=== PATIENT | female | born 1945 ===

== ENCOUNTER 2017-04-10 08:48 | Day surgery (SDC) | payer MEDICARE, OTHER ==
[~2017-04-10] VITALS: Ht 154.9 cm; Wt 71.3 kg
[~2017-04-10 08:48] MED LIST: ACET500 PO; ASCO500 PO; Adult Low Dose81 MG PO; Ativan0.5 MG PO; Biotin1 MG PO; Boniva150 MG; CALCIT950 PO; CLON.1 PO; CYCL10 PO; ENOX80I SC; FENO145 PO; FLUO60T; GLUCOSAMINE PO; GLUCOSAMINE/CHONDRO PO; HYDCHL25 PO; HYDSUL200 PO; LETR2.5 PO; LEVSOD88 PO; LISI20 PO; MAG-TAB SR PO; METO50 PO; MSM1000 MG PO; MULVITMIND PO; Meribin5 MG PO; OMEP20ER PO; Olux-E 0.05% F100 GM TP; PSYL5.85P PO; SUMA25 PO; Salmon Oil 1,01 EACH PO; TRAV.004OP BOTHEYES; UBID100 PO; VENL150ER PO; VOLTARIN GEL; WARF1 PO; ZOLP10 PO; Zanaflex4 M1 PO; [UNRECOGNIZED DRUG - OTHER] PO
[2017-04-10] MEDS ORDERED: GLUC500 (09:09)
[2017-04-10] MEDS ORDERED: Coq-10100 MG (09:09)
== END 2017-04-10 11:25 | disposition home or self-care (01) ==
LOC: ORSCSDS 08:48
PROVIDERS: Internal Medicine Gastroenterology
PROC: 0DBL8ZX Excision of Transverse Colon, Via Natural or Artificial Opening Endoscopic, Diagnostic (ICD-10-PCS; principal; 2017-04-10 10:00)
PROC: 0DB68ZX Excision of Stomach, Via Natural or Artificial Opening Endoscopic, Diagnostic (ICD-10-PCS; principal; 2017-04-10 10:00)
DX: K21.9 Gastro-esophageal reflux disease without esophagitis (principal); K31.7 Polyp of stomach and duodenum; K63.5 Polyp of colon; K64.8 Other hemorrhoids; K57.30 Diverticulosis of large intestine without perforation or abscess without bleeding; Z12.11 Encounter for screening for malignant neoplasm of colon; Z86.010 Personal history of colon polyps; Z80.0 Family history of malignant neoplasm of digestive organs; M32.9 Systemic lupus erythematosus, unspecified; M79.7 Fibromyalgia; E78.5 Hyperlipidemia, unspecified; E03.9 Hypothyroidism, unspecified; Z86.711 Personal history of pulmonary embolism; Z86.718 Personal history of other venous thrombosis and embolism; Z79.899 Other long term (current) drug therapy
CPT/HCPCS: 82947; 88305; 88342; J2405; J7120

== ENCOUNTER 2017-09-23 16:38 | Emergency (ER) | payer MEDICARE, OTHER ==
[~2017-09-23] VITALS: Ht 154.9 cm; Wt 74.8 kg
[~2017-09-23 16:38] MED LIST changes: +Coq-10100 MG; +GLUC500
[2017-09-23 18:47] LABS: BASOPHILS ABSOLUTE AUTO 0.03 K/mm3 (0.00-0.23); BASOPHILS PERCENT AUTO 0 % (0-2); EOSINOPHILS ABSOLUTE AUTO 0.16 K/mm3 (0.00-0.68); EOSINOPHILS PERCENT AUTO 2 % (0-6); Hematocrit 33.6 % (33.0-51.0); Hemoglobin 11.1 g/dL (11.5-16.0); IMMATURE GRAN ABSOLUTE AUTO 0.01 K/mm3 (0.00-0.10); IMMATURE GRAN PERCENT AUTO 0 % (0-1); LYMPHOCYTES ABSOLUTE AUTO 1.78 K/mm3 (0.84-5.20); LYMPHOCYTES PERCENT AUTO 26 % (21-46); MONOCYTES ABSOLUTE AUTO 0.63 K/mm3 (0.16-1.47); MONOCYTES PERCENT AUTO 9 % (4-13); Mean Corpuscular HGB 30.4 pg (26.0-34.0); Mean Corpuscular Volume 92 fL (80-100); Mean Platelet Volume 10.9 fL (9.1-12.4); NEUTROPHILS ABSOLUTE AUTO 4.38 K/mm3 (1.96-9.15); NEUTROPHILS PERCENT AUTO 63 % (41-73); Platelet Count 248 K/mm3 (150-400); RDW Coefficient Variation 12.6 % (11.7-14.2); RDW Standard Deviation 42.9 fL (35.1-46.3); Red Blood Cell Count 3.65 M/mm3 (3.80-5.20); White Blood Cell Count 6.99 K/mm3 (4.00-11.30)
[2017-09-23 18:58] LABS: Albumin, Blood 4.1 g/dL (3.4-5.0); Albumin/Globulin Ratio 1.2 (0.8-1.8); Bilirubin, Total 0.3 mg/dL (0.1-1.0); Calcium, Blood 10.6 mg/dL (8.5-10.1); Creatinine, Blood 1.18 mg/dL (0.40-1.00); Globulin, Blood 3.4 g/dL (2.2-4.0); Potassium, Blood 3.9 mmol/L (3.5-5.5); Total Protein, Blood 7.5 g/dL (6.4-8.2)
[2017-09-23] MEDS ORDERED: Cleocin HCl300 MG PO (21:19)
== END 2017-09-23 21:29 | disposition home or self-care (01) ==
LOC: ER 16:38
PROVIDERS: Emergency Medicine
DX: K11.20 Sialoadenitis, unspecified (principal); Z88.0 Allergy status to penicillin; Z88.1 Allergy status to other antibiotic agents; Z88.8 Allergy status to other drugs, medicaments and biological substances; Z91.048 Other nonmedicinal substance allergy status; Z79.899 Other long term (current) drug therapy; Z79.82 Long term (current) use of aspirin; Z86.718 Personal history of other venous thrombosis and embolism; Z86.711 Personal history of pulmonary embolism
CPT/HCPCS: 36415; 70491; 80053; 85025; 99283-25; Q9967

== ENCOUNTER → 2018-04-09 | Outpatient (CLI) | payer MEDICARE, OTHER ==
[~2018-04-09] MED LIST changes: +Cleocin HCl300 MG PO
== END ==
LOC: PLD 09:49 → LAB SHORT 09:49
DX: D48.5 Neoplasm of uncertain behavior of skin (principal)
CPT/HCPCS: 88305

== ENCOUNTER 2019-01-27 12:56 | Emergency (ER) | payer MEDICARE, OTHER ==
[~2019-01-27] VITALS: Ht 154.9 cm; Wt 76.2 kg
[2019-01-27] MEDS ORDERED: Prednisone20 MG PO (14:22)
[2019-01-27] MEDS ORDERED: Norco 10-325 T1 EACH PO (14:22)
[2019-01-27] MEDS ORDERED: Cyclobenzaprine5 MG PO (14:22)
== END 2019-01-27 14:47 | disposition home or self-care (01) ==
LOC: ER 12:56
DX: M54.42 Lumbago with sciatica, left side (principal); G89.29 Other chronic pain; Z88.0 Allergy status to penicillin; Z88.8 Allergy status to other drugs, medicaments and biological substances; Z91.048 Other nonmedicinal substance allergy status; Z88.1 Allergy status to other antibiotic agents; Z79.899 Other long term (current) drug therapy; Z79.82 Long term (current) use of aspirin
CPT/HCPCS: 96372; 99283-25; J1100; J1170

== ENCOUNTER 2019-01-29 08:43 | Emergency (ER) | payer MEDICARE, OTHER ==
[~2019-01-29] VITALS: Ht 154.9 cm; Wt 72.6 kg
[~2019-01-29 08:43] MED LIST changes: +Cyclobenzaprine5 MG PO; +Norco 10-325 T1 EACH PO; +Prednisone20 MG PO
[2019-01-29 10:43] LABS: BASOPHILS ABSOLUTE AUTO 0.01 K/mm3 (0.00-0.23); BASOPHILS PERCENT AUTO 0 % (0-2); EOSINOPHILS PERCENT AUTO 0 % (0-6); Hematocrit 34.7 % (33.0-51.0); Hemoglobin 11.5 g/dL (11.5-16.0); IMMATURE GRAN ABSOLUTE AUTO 0.11 K/mm3 (0.00-0.10); IMMATURE GRAN PERCENT AUTO 1 % (0-1); LYMPHOCYTES ABSOLUTE AUTO 0.71 K/mm3 (0.84-5.20); LYMPHOCYTES PERCENT AUTO 6 % (21-46); MONOCYTES ABSOLUTE AUTO 0.68 K/mm3 (0.16-1.47); MONOCYTES PERCENT AUTO 6 % (4-13); Mean Corpuscular HGB 30.6 pg (26.0-34.0); Mean Corpuscular HGB Conc 33.1 g/dL (31.5-36.5); Mean Corpuscular Volume 92 fL (80-100); Mean Platelet Volume 10.9 fL (9.1-12.4); NEUTROPHILS PERCENT AUTO 88 % (41-73); Platelet Count 217 K/mm3 (150-400); RDW Coefficient Variation 12.6 % (11.7-14.2); RDW Standard Deviation 42.5 fL (35.1-46.3); Red Blood Cell Count 3.76 M/mm3 (3.80-5.20); White Blood Cell Count 12.41 K/mm3 (4.00-11.30)
[2019-01-29 11:00] LABS: Anion Gap 7 mmol/L (6-16); Blood Urea Nitrogen 38 mg/dL (8-24); CO2, Blood 27 mmol/L (21-32); Calcium, Blood 9.6 mg/dL (8.5-10.1); Chloride, Blood 103 mmol/L (98-108); Glucose, Blood 202 mg/dL (70-99); Magnesium, Blood 1.7 mg/dL (1.6-2.4); Potassium, Blood 4.2 mmol/L (3.5-5.5); Sodium, Blood 137 mmol/L (136-145)
[2019-01-29 11:01] LABS: Bun/Creatinine Ratio 42.2 (12.0-20.0); Glomerular Filtration Rate >60 (60-)
[2019-01-29 11:06] LABS: Source, Urine Catheter
[2019-01-29 11:09] LABS: Bilirubin, Urine Neg (Neg); Blood, Urine 1+ (Neg); Glucose Qualitative, Urine Neg (Neg); Ketones, Urine Neg (Neg); Leukocyte Esterase, Urine Neg (Neg); Nitrite, Urine Neg (Neg); Protein, Urine 3+ (Neg); Specific Gravity, Urine 1.015 (1.003-1.022); Urobilinogen, Urine NORM (Normal)
[2019-01-29 11:12] LABS: Appearance, Urine Clear (Clear); Color, Urine Yellow (P-Yellow)
[2019-01-29 11:19] LABS: Bacteria Not Seen /hpf; Hyaline Casts 0-2 /lpf (0-2); Red Blood Cells, Urine 0-2 /hpf (0-2); Squamous Epithelial Cells Not Seen /hpf (Few); White Blood Cells, Urine Rare /hpf (0-5)
[2019-01-29] MEDS ORDERED: Valium5 MG PO (11:40)
[2019-01-29] MEDS ORDERED: Percocet 10-321 EACH PO (11:40)
== END 2019-01-29 14:21 | disposition home or self-care (01) ==
LOC: ER 08:43
PROVIDERS: Emergency Medicine
DX: M54.16 Radiculopathy, lumbar region (principal); F41.9 Anxiety disorder, unspecified; M79.7 Fibromyalgia; M62.830 Muscle spasm of back; K21.9 Gastro-esophageal reflux disease without esophagitis; Z85.828 Personal history of other malignant neoplasm of skin; Z86.711 Personal history of pulmonary embolism; Z86.718 Personal history of other venous thrombosis and embolism; Z88.0 Allergy status to penicillin; Z88.1 Allergy status to other antibiotic agents; Z79.899 Other long term (current) drug therapy; Z79.82 Long term (current) use of aspirin; Z79.891 Long term (current) use of opiate analgesic; Z79.52 Long term (current) use of systemic steroids
CPT/HCPCS: 36415; 80048; 81001; 83735; 85025; 96361; 96374; 96375; 99283-25; J2060; J2405; J2930; J3010; J7030

== ENCOUNTER 2019-02-11 18:31 | Inpatient (IN) | payer MEDICARE, OTHER ==
[~2019-02-11] VITALS: Ht 162.6 cm; Wt 68.0 kg
[~2019-02-11 18:31] MED LIST changes: +Percocet 10-321 EACH PO; +Valium5 MG PO
[2019-02-11 20:29] LABS: BASOPHILS ABSOLUTE AUTO 0.02 K/mm3 (0.00-0.23); BASOPHILS PERCENT AUTO 0 % (0-2); EOSINOPHILS ABSOLUTE AUTO 0.05 K/mm3 (0.00-0.68); EOSINOPHILS PERCENT AUTO 0 % (0-6); Hematocrit 35.4 % (33.0-51.0); Hemoglobin 11.7 g/dL (11.5-16.0); IMMATURE GRAN ABSOLUTE AUTO 0.05 K/mm3 (0.00-0.10); IMMATURE GRAN PERCENT AUTO 0 % (0-1); LYMPHOCYTES ABSOLUTE AUTO 0.72 K/mm3 (0.84-5.20); LYMPHOCYTES PERCENT AUTO 6 % (21-46); MONOCYTES ABSOLUTE AUTO 1.07 K/mm3 (0.16-1.47); MONOCYTES PERCENT AUTO 8 % (4-13); Mean Corpuscular HGB 30.7 pg (26.0-34.0); Mean Corpuscular HGB Conc 33.1 g/dL (31.5-36.5); Mean Corpuscular Volume 93 fL (80-100); NEUTROPHILS ABSOLUTE AUTO 10.92 K/mm3 (1.96-9.15); NEUTROPHILS PERCENT AUTO 85 % (41-73); Platelet Count 215 K/mm3 (150-400); RDW Coefficient Variation 12.4 % (11.7-14.2); RDW Standard Deviation 42.5 fL (35.1-46.3); Red Blood Cell Count 3.81 M/mm3 (3.80-5.20); White Blood Cell Count 12.83 K/mm3 (4.00-11.30)
[2019-02-11 20:59] LABS: Body Fluid Crystals NEG (NEGATIVE)
[2019-02-11 21:12] LABS: Appearance, Synovial Fluid Bloody (Clear); Color, Synovial Fluid Red (None-P Yel)
[2019-02-11] MEDS ORDERED: OXYCODONE/ACETAMINOP (21:13)
[2019-02-11 21:30] LABS: Eos, Synovial Fluid 1 % (0-2); Lymphs, Synovial Fluid 4 % (0-15); Monocytes/Macrophages, Synovia 1 % (0-65); Neutrophils, Synovial Fluid 94 % (0-24)
[2019-02-12 00:08] LABS: Alanine Aminotransfer (ALT/SGP 33 U/L (12-78); Albumin, Blood 3.1 g/dL (3.4-5.0); Albumin/Globulin Ratio 0.8 (0.8-1.8); Alk Phos 48 U/L (50-136); Anion Gap 6 mmol/L (6-16); Aspartate Aminotrans (AST/SGOT 20 U/L (12-37); Bilirubin, Total 0.5 mg/dL (0.1-1.0); Blood Urea Nitrogen 14 mg/dL (8-24); CO2, Blood 28 mmol/L (21-32); Calcium, Blood 9.1 mg/dL (8.5-10.1); Chloride, Blood 100 mmol/L (98-108); Creatinine, Blood 0.74 mg/dL (0.40-1.00); Globulin, Blood 3.8 g/dL (2.2-4.0); Glomerular Filtration Rate >60 (60-); Glucose, Blood 177 mg/dL (70-99); Potassium, Blood 3.2 mmol/L (3.5-5.5); Sodium, Blood 134 mmol/L (136-145); Total Protein, Blood 6.9 g/dL (6.4-8.2)
--- NOTE | 2019-02-12 05:26 | NUR ---
SHIFT SUMMARY: MILEY WAS ADMITTED THIS MORNING, MEDICAL FLOOR OVERFLOW. SHE IS A&OX4. SHE HAS COMPLAINED OF 12/10 PAIN IN HER LEFT ANKLE/LEG/BACK FOR WHICH SHE REPORTED DILAUDID, ICING AND ELEVATING IMPROVED HER PAIN TO 7/10. SHE IS ABLE TO MAKE HER NEEDS KNOWN. SHE DECLINED TO CHANGE INTO A HOSPITAL GOWN. THE IV TO HER LEFT AC IS PATENT, BUT SHE DID COMPLAIN OF DISCOMFORT WITH THE POTASSIUM INFUSION. HER IS AT BEDSIDE WHO HAS PROVIDED BACK RUBS AND DISTRACTION TO HELP WITH PAIN. BOTH MILEY AND HER ARE INQUISITIVE AND ARE DETAILED HISTORIANS. SHE IS LYING IN BED WITH EYES CLOSED AND EVEN, UNLABORED RESPIRATIONS. HER CALL LIGHT IS WITHIN REACH.
[2019-02-12] MEDS ORDERED: MAGN84 PO (08:36)
[2019-02-12] MEDS ORDERED: THERA1 EACH PO (08:37)
[2019-02-12] MEDS ORDERED: Salmon Oil 1,01 EACH PO (08:38)
[2019-02-12 10:22] LABS: BASOPHILS ABSOLUTE AUTO 0.02 K/mm3 (0.00-0.23); BASOPHILS PERCENT AUTO 0 % (0-2); EOSINOPHILS ABSOLUTE AUTO 0.17 K/mm3 (0.00-0.68); EOSINOPHILS PERCENT AUTO 2 % (0-6); Hematocrit 34.2 % (33.0-51.0); IMMATURE GRAN ABSOLUTE AUTO 0.03 K/mm3 (0.00-0.10); IMMATURE GRAN PERCENT AUTO 0 % (0-1); LYMPHOCYTES ABSOLUTE AUTO 0.86 K/mm3 (0.84-5.20); LYMPHOCYTES PERCENT AUTO 9 % (21-46); MONOCYTES ABSOLUTE AUTO 0.89 K/mm3 (0.16-1.47); MONOCYTES PERCENT AUTO 10 % (4-13); Mean Corpuscular HGB 30.1 pg (26.0-34.0); Mean Corpuscular HGB Conc 32.2 g/dL (31.5-36.5); Mean Corpuscular Volume 93 fL (80-100); NEUTROPHILS ABSOLUTE AUTO 7.32 K/mm3 (1.96-9.15); NEUTROPHILS PERCENT AUTO 79 % (41-73); Platelet Count 198 K/mm3 (150-400); RDW Coefficient Variation 12.5 % (11.7-14.2); RDW Standard Deviation 43.4 fL (35.1-46.3); Red Blood Cell Count 3.66 M/mm3 (3.80-5.20); White Blood Cell Count 9.29 K/mm3 (4.00-11.30)
[2019-02-12 10:35] LABS: Anion Gap 6 mmol/L (6-16); Blood Urea Nitrogen 10 mg/dL (8-24); Bun/Creatinine Ratio 13.9 (12.0-20.0); CO2, Blood 23 mmol/L (21-32); Calcium, Blood 9.3 mg/dL (8.5-10.1); Chloride, Blood 109 mmol/L (98-108); Creatinine, Blood 0.72 mg/dL (0.40-1.00); Glomerular Filtration Rate >60 (60-); Glucose, Blood 176 mg/dL (70-99); Potassium, Blood 4.2 mmol/L (3.5-5.5); Sodium, Blood 138 mmol/L (136-145)
[2019-02-12 10:40] LABS: International Normalized Ratio 1.01; Prothrombin Time Results 10.7 Sec (9.7-11.5)
--- NOTE | 2019-02-12 18:21 | NUR ---
SHIFT SUMMARY PATIENT W/O ACUTE CHANGES THIS SHIFT. LLE APPEARS SLIGHTLY LESS SWOLLEN THAN THIS AM; ELEVATED AND ICE IN PLACE. TOLERATING PO. VOIDING. C/O NECK AND THIGH MUSCLE PAIN, FLEXERIL ADMIN. SPOUSE IN TO SEE. WILL REPORT TO PREMA MCKINLEY.
--- NOTE | 2019-02-13 05:28 | NUR ---
SHIFT SUMMARY AT THE BEGINNING OF THE SHIFT THE PATIENT WAS VERY PAINFUL WITH ANY MOVEMENT. tHIS MORNING SHE IS NOT COMPLAINING OF ANY PAIN. sHE HAS BEEN OUT OF BED TO THE COMMODE SEVERAL TIMES THIS SHIFT. IF LEFT TO SIT ON THE COMMODE FOR 15 MINS, SHE FEELS THAT HER BLADDER IS ABLE TO EMPTY MUCH BETTER. HER LUNGS ARE CLEAR. NO ACUTE CHANGES.
[2019-02-13 09:20] LABS: Vancomycin, Trough 11.1 ug/mL (5.0-10.0)
--- NOTE | 2019-02-13 17:54 | NUR ---
SHIFT SUMMARY PATIENT TOLERATING WALKING BETTER TODAY. UP TO BR W/FWW AND SBA. DENIES NEED FOR PAIN MED AT THIS TIME. UP TO CHAIR FOR MEALS, TOLERATING PO. NO ACUTE CHANGES OR C/O.
--- NOTE | 2019-02-14 04:16 | NUR ---
SHIFT SUMMARY PT AWAKE FOR MOST OF THE NIGHT, FORGETFUL AND EASILY CONFUSED AT TIMES. LLE ELEVATED, ICE IN PLACE PRN. NO CHANGE IN SWELLING. SBA WITH FWW TO BATHROOM. TOLERATING PO INTAKE. PAIN MANAGED WITH PO MEDICATION. CURRENTLY RESTING IN BED AND HAS CALL LIGHT WITHIN REACH.
[2019-02-14] MEDS ORDERED: DOXY100 PO (11:14)
--- NOTE | 2019-02-14 12:07 | NUR ---
PT AND HER SPOUSE WERE PROVIDED WITH WRITTEN AND VERBAL DISCHARGE. THEY REPORTED UNDERSTANDING INSTRUCTIONS. ANTIBIOTIC CALLED TO PHARMACY. WILL CONTINUE TO MONITOR.
== END 2019-02-14 11:56 | disposition home or self-care (01) | DRG 603 ==
LOC: ER 18:31 → SURS 02-12 02:26
PROVIDERS: Internal Medicine; Nurse Practitioner Acute Care; Physician Assistant; ADMIT Internal Medicine
DX: L03.116 Cellulitis of left lower limb (principal); M00.9 Pyogenic arthritis, unspecified; M06.9 Rheumatoid arthritis, unspecified; Z86.711 Personal history of pulmonary embolism; K21.9 Gastro-esophageal reflux disease without esophagitis; E87.6 Hypokalemia; M54.32 Sciatica, left side; Z86.718 Personal history of other venous thrombosis and embolism; Z79.899 Other long term (current) drug therapy; I10 Essential (primary) hypertension
CPT/HCPCS: 20605; 36415; 73630; 73701; 80048; 80053; 80202; 83605; 85025; 85610; 85651; 85730; 86140; 87040; 87070; 87075; 87205; 89051; 89060; 97116; 97162; 97530; 99285-25; A9270-GY; J1170; J1650; J1885; J3370; J3480; J7030; Q9967

== ENCOUNTER → 2019-06-29 | Outpatient (CLI) | payer MEDICARE, OTHER ==
[~2019-06-29] MED LIST changes: +DOXY100 PO; +MAGN84 PO; +OXYCODONE/ACETAMINOP; +THERA1 EACH PO
[2019-07-01 11:07] LABS: M-SPIKE, % Not Observed % (Not Observed)
== END | disposition home or self-care (01) ==
LOC: LAB SHORT 15:48 → LAB 15:48 → LAB FUT 05-31 12:20
PROVIDERS: Internal Medicine
DX: E87.8 Other disorders of electrolyte and fluid balance, not elsewhere classified (principal); E83.52 Hypercalcemia
CPT/HCPCS: 81050; 84156; 84166

== ENCOUNTER 2019-11-28 21:54 | Emergency (ER) | payer MEDICARE, OTHER ==
[~2019-11-28] VITALS: Ht 154.9 cm; Wt 72.6 kg
[2019-11-28 23:05] LABS: BASOPHILS ABSOLUTE AUTO 0.03 K/mm3 (0.00-0.23); BASOPHILS PERCENT AUTO 0 % (0-2); EOSINOPHILS ABSOLUTE AUTO 0.14 K/mm3 (0.00-0.68); EOSINOPHILS PERCENT AUTO 1 % (0-6); Hematocrit 36.5 % (33.0-51.0); Hemoglobin 12.5 g/dL (11.5-16.0); IMMATURE GRAN ABSOLUTE AUTO 0.04 K/mm3 (0.00-0.10); IMMATURE GRAN PERCENT AUTO 0 % (0-1); LYMPHOCYTES ABSOLUTE AUTO 1.04 K/mm3 (0.84-5.20); LYMPHOCYTES PERCENT AUTO 9 % (21-46); MONOCYTES ABSOLUTE AUTO 0.92 K/mm3 (0.16-1.47); MONOCYTES PERCENT AUTO 8 % (4-13); Mean Corpuscular HGB 32.1 pg (26.0-34.0); Mean Corpuscular HGB Conc 34.2 g/dL (31.5-36.5); Mean Corpuscular Volume 94 fL (80-100); Mean Platelet Volume 10.6 fL (9.1-12.4); NEUTROPHILS ABSOLUTE AUTO 9.18 K/mm3 (1.96-9.15); NEUTROPHILS PERCENT AUTO 81 % (41-73); Platelet Count 269 K/mm3 (150-400); RDW Standard Deviation 41.1 fL (35.1-46.3); White Blood Cell Count 11.35 K/mm3 (4.00-11.30)
[2019-11-28 23:28] LABS: Anion Gap 5 mmol/L (6-16); Blood Urea Nitrogen 24 mg/dL (8-24); Bun/Creatinine Ratio 25.3 (12.0-20.0); CO2, Blood 28 mmol/L (21-32); Calcium, Blood 10.3 mg/dL (8.5-10.1); Chloride, Blood 107 mmol/L (98-108); Creatinine, Blood 0.95 mg/dL (0.40-1.00); Glomerular Filtration Rate >60 (60-); Glucose, Blood 256 mg/dL (70-99); Sodium, Blood 140 mmol/L (136-145)
[2019-11-29] MEDS ORDERED: Percocet 5-3251 EACH PO (00:37)
[2019-11-29] MEDS ORDERED: Cleocin HCl150 MG PO (00:37)
== END 2019-11-29 01:06 | disposition home or self-care (01) ==
LOC: ER 21:54
PROVIDERS: Physician Assistant
DX: K11.20 Sialoadenitis, unspecified (principal); Z86.718 Personal history of other venous thrombosis and embolism; Z88.0 Allergy status to penicillin; Z79.899 Other long term (current) drug therapy; Z91.09 Other allergy status, other than to drugs and biological substances; Z88.8 Allergy status to other drugs, medicaments and biological substances; Z88.1 Allergy status to other antibiotic agents; Z88.4 Allergy status to anesthetic agent; Z79.82 Long term (current) use of aspirin
CPT/HCPCS: 70491; 80048; 85025; 99283-25; A9270; A9270-GY; Q9967